=== PATIENT | male | born 1990 ===

== ENCOUNTER → 2021-07-13 | Outpatient (CLI) | payer BC ==
[~2021-07-13] MED LIST: CETI10 PO; HYDHCL25 PO
[2021-07-13 12:05] LABS: BODY FLUID RBC 0.018 M/mm3 (0-0); RBC Count, Synovial Fluid 18000 /mm3 (0-0); WBC Count, Synovial Fluid 838 /mm3 (0-180)
[2021-07-13 12:07] LABS: Body Fluid Crystals NEG (NEGATIVE)
[2021-07-13 14:01] LABS: Lymphs, Synovial Fluid 4 % (0-15); Neutrophils, Synovial Fluid 94 % (0-24)
[2021-07-13 14:02] LABS: Other Cells, Synovial Fluid 2 % (0-0)
[2021-07-13 14:05] LABS: Appearance, Synovial Fluid Cloudy (Clear); Color, Synovial Fluid Dark Yellow (None-P Yel)
== END | disposition home or self-care (01) ==
LOC: LAB SHORT 11:15
PROVIDERS: Family Medicine
DX: M25.461 Effusion, right knee (principal)
CPT/HCPCS: 89051; 89060

== ENCOUNTER 2025-02-14 02:22 | Emergency (ER) | payer OTHER ==
[~2025-02-14] VITALS: Ht 182.9 cm; Wt 106.6 kg
[2025-02-14] MEDS ORDERED: PANT40 PO (02:42)
[2025-02-14] MEDS ORDERED: NEURONTIN300 MG PO (02:42)
[2025-02-14] MEDS ORDERED: LOSA50 PO (02:42)
[2025-02-14 02:50] LABS: BASOPHILS ABSOLUTE AUTO 0.07 K/mm3 (0.00-0.23); BASOPHILS PERCENT AUTO 1 % (0-2); EOSINOPHILS ABSOLUTE AUTO 0.09 K/mm3 (0.00-0.68); EOSINOPHILS PERCENT AUTO 1 % (0-6); Hematocrit 46.5 % (37.0-53.0); Hemoglobin 16.6 g/dL (13.5-17.5); IMMATURE GRAN ABSOLUTE AUTO 0.01 K/mm3 (0.00-0.10); IMMATURE GRAN PERCENT AUTO 0 % (0-1); LYMPHOCYTES ABSOLUTE AUTO 1.82 K/mm3 (0.84-5.20); LYMPHOCYTES PERCENT AUTO 24 % (21-46); MONOCYTES ABSOLUTE AUTO 0.88 K/mm3 (0.16-1.47); MONOCYTES PERCENT AUTO 12 % (4-13); Mean Corpuscular HGB Conc 35.7 g/dL (31.5-36.5); Mean Corpuscular Volume 87 fL (80-100); NEUTROPHILS ABSOLUTE AUTO 4.76 K/mm3 (1.96-9.15); NEUTROPHILS PERCENT AUTO 62 % (41-73); NRBC ABSOLUTE 0.00 K/mm3 (0.00-0.02); NRBC Auto 0.0 /100 WBC (0.0-0.2); Platelet Count 255 K/mm3 (150-400); RDW Coefficient Variation 11.3 % (11.7-14.2); RDW Standard Deviation 36.0 fL (35.1-46.3)
[2025-02-14 03:00] VITALS: BP 175/112
[2025-02-14 03:08] LABS: Alanine Aminotransfer (ALT/SGP 55.0 U/L (12-78); Albumin, Blood 4.4 g/dL (3.4-5.0); Albumin/Globulin Ratio 1.2 (0.8-1.8); Anion Gap 11.0 mmol/L (3-11); Aspartate Aminotrans (AST/SGOT 35.0 U/L (12-37); Bilirubin, Total 0.8 mg/dL (0.1-1.0); Blood Urea Nitrogen 16.0 mg/dL (8-24); CO2, Blood 27.0 mmol/L (21-32); Calcium, Blood 9.7 mg/dL (8.5-10.1); Chloride, Blood 102.0 mmol/L (98-108); Creatinine, Blood 0.95 mg/dL (0.60-1.20); Globulin, Blood 3.7 g/dL (2.2-4.0); Glucose, Blood 121.0 mg/dL (70-99); Potassium, Blood 3.6 mmol/L (3.5-5.5); Sodium, Blood 136.0 mmol/L (136-145); Total Protein, Blood 8.1 g/dL (6.4-8.2)
[2025-02-14] MEDS ORDERED: Lidocaine 2% Viscous Soln 15 ML UDC PO ONE (03:20)
[2025-02-14] MEDS ORDERED: ALMACONE SUSPE355 ML PO (03:21)
== END 2025-02-14 03:33 | disposition home or self-care (01) ==
LOC: ER 02:22
PROVIDERS: Emergency Medicine
DX: K21.9 Gastro-esophageal reflux disease without esophagitis (principal); F10.90 Alcohol use, unspecified, uncomplicated; Z68.31 Body mass index [BMI] 31.0-31.9, adult; Z79.899 Other long term (current) drug therapy
CPT/HCPCS: 80053; 84484; 85025; 93005; 93010; 99283-25; A9270